=== PATIENT | female | born 1965 | race Caucasian/White ===

== ENCOUNTER 2017-09-16 18:32 | Emergency (ER) | payer SELFPAY ==
[2017-09-16] MEDS ORDERED: IPRATROPIUM/ALBUTEROL 3 ML DEYVIAL IH ONE (19:01)
--- NOTE | 2017-09-16 19:02 | EDPHY ---
H & P Stated Complaint: URI sxs since 09/05;saw MD started on antibx/steroids;wants cxr Time Seen by Provider: 09/16/17 18:54 HPI/ROS: Chief complaint: Cold symptoms History of present illness: This is a 52-year-old female who presents to the emergency department for cold symptoms. Patient states she has been sick since the 05 of September, approximately 12 days ago. Her cold symptoms have been persistent. She has a long history of developing mild cold symptoms that have progressed to pneumonia, ever since she was a child. She was seen by her doctor for this illness and treated with azithromycin and a Medrol Dosepak. However, she feels symptoms are worsening. She continues to have tactile fevers , chest congestion, cough and trouble breathing. She reports she has been sick like this multiple times. She states normally the treatment she has already received will control symptoms but this time it is not. She denies other associated signs or symptoms including no headache or neck pain, no rash. [place] and is returning home to [facility] in 2 days. Review of systems: A 10 point review of systems was obtained and other than described above was negative - Personal History LMP (Females 10-55): Post Menopausal Current Tetanus Diphtheria and Acellular Pertussis (TDAP): No - Medical/Surgical History Hx Asthma: Yes Other PMH: GERD. Recurring PNA following URIs since childhood - Social History Smoking Status: Current every day smoker - Physical Exam Exam: General Appearance: Alert, nontoxic. Eyes: Pupils equal and round no pallor or injection. ENT, Mouth: Mucous membranes moist. Respiratory: Patient is speaking in full sentences. There is no accessory muscle use. However, there is diffuse rhonchi and wheezing. Cardiovascular: Regular rate and rhythm. Gastrointestinal: Abdomen is soft and non tender, no masses, bowel sounds normal. Neurological: Alert and oriented x4. Strength and sensation intact and symmetrical. There is no meningismus. Skin: Warm and dry, no rashes. Musculoskeletal: Neck is supple non tender. Patient is ambulating without difficulty. Psychiatric: Patient is oriented X 3, there is no agitation. Constitutional: Initial Vital Signs Temperature (C) 36.9 C 09/16/17 18:39 Heart Rate 96 09/16/17 18:39 Respiratory Rate 18 09/16/17 18:39 Blood Pressure 117/82 H 09/16/17 18:39 O2 Sat (%) 97 09/16/17 18:39 O2 Delivery Mode Room Air Allergies/Adverse Reactions: Penicillins Allergy (Intermediate, Verified 09/16/17 18:45) perfumes Allergy (Severe, Uncoded 09/16/17 18:45) severe resp distress Home Medications: Medication Instructions Recorded Azithromycin [Zithromax] 250 mg PO DAILY 09/16/17 Benzonatate [Tessalon Pearles (RX)] 200 mg PO TID #30 cap 09/16/17 EPINEPHrine [Epipen 0.3 MG] 0.3 mg IM ONCE 09/16/17 Hrt 09/16/17 Omeprazole 40 mg PO 09/16/17 levOFLOXACIN [levAQUIN (*)] 750 mg PO DAILY 6 Days tab 09/16/17 methylPREDNISolone [Medrol 4mg (*)] 4 mg PO 09/16/17 Medical Decision Making - Diagnostics Imaging Results: Imaging Impressions Chest X-Ray 09/16/17 19:01 Impression: 1. Prominence of perihilar interstitial markings and peribronchial cuffing. Findings are nonspecific but can be seen with bronchitis, reactive airway disease, or viral process. 2. Mild patchy resolving infiltrate/pneumonia suspected in the right middle lobe. Imaging: Discussed imaging studies w/ scallop dredger Radiologist, I viewed and interpreted images myself ED Course/Re-evaluation: Patient is discussed with my secondary supervising physician Dr. Spike Gordon. Patient presents to the emergency department for cold symptoms. She has been sick for the last 12 days. She has been treated with azithromycin and what appears to be a Medrol Dosepak but symptoms persist. Physical exam reveals diffuse rhonchi and wheezing. She is given a duo nebulizer for the treatment of suspected reactive airway disease likely secondary to the infectious process. She has not had a chest x-ray as of yet during this illness. Given that she appears to be failing 1st line treatment of azithromycin and a Medrol Dosepak a chest x-ray is pursued which is concerning for a right middle lobe pneumonia. I have discussed inpatient management versus outpatient management with the patient. She would like to attempt to treat her illness at home if possible. Vital signs are stable. She will be discharged home on an albuterol inhaler with spacer for the control of suspected airway disease from the infection. She appears to have failed first-line antibiotic therapy with azithromycin, I will switch her to Levaquin for broad-spectrum coverage. Home care is discussed including rest and hydration. I have had a lengthy discussion with her that if her symptoms worsen or new symptoms develop she should return to the emergency room for recheck immediately. The patient voiced understanding and agreement with plan. Differential Diagnosis: Included but not limited to bronchitis, pneumonia, empyema, viral syndrome - Data Points Medications Given: Discontinued Medications Albuterol Sulfate (Proventil Inh Prepack) 1 mdi TAKEHOME EDNOW ONE Stop: 09/16/17 19:42 Last Admin: 09/16/17 19:59 Dose: 1 mdi Albuterol/Ipratropium (Duoneb) 3 ml IH EDNOW ONE Stop: 09/16/17 19:02 Last Admin: 09/16/17 19:08 Dose: 3 ml Levofloxacin (Levaquin) 750 mg PO EDNOW ONE PRN Reason: Protocol Stop: 09/16/17 19:42 Last Admin: 09/16/17 20:00 Dose: 750 mg Departure - Departure Disposition: Home, Routine, Self-Care Clinical Impression: Pneumonia Qualifiers: Pneumonia type: due to unspecified organism Laterality: right Lung location: middle lobe of lung Qualified Code(s): J18.1 - Lobar pneumonia, unspecified organism Reactive airway disease Qualifiers: Asthma severity: mild Asthma persistence: intermittent Asthma complication type : with acute exacerbation Qualified Code(s): J45.21 - Mild intermittent asthma with (acute) exacerbation Condition: Good Instructions: Albuterol (By breathing), Levofloxacin (By mouth), Bacterial Pneumonia (ED) Additional Instructions: Please follow-up with your regular doctor next week for recheck Stop taking the antibiotics you were prescribed and start the ones we prescribed Use the inhaler as instructed taking 2 puffs every 4 hr while awake I also recommend you use the [id number] medication guaifenesin to help loosen secretions in the lungs Drink plenty of fluids to stay hydrated and get plenty of rest If at any time your symptoms worsen or new symptoms develop return to the emergency room for recheck Referrals: NONE *PRIMARY CARE P,. [Primary Care Provider] - As per Instructions Barb Velazquez MD [Medical Doctor] - As per Instructions Prescriptions: Benzonatate [Tessalon Pearles (RX)] 200 mg PO TID #30 cap levOFLOXACIN [levAQUIN (*)] 750 mg PO DAILY 6 Days tab
[2017-09-16] MEDS ORDERED: ALBUTEROL INH PREPACK MDI TAKEHOME ONE (19:41)
[2017-09-16 20:02] VITALS: BP 125/90
== END 2017-09-16 20:25 | disposition home or self-care (01) ==
DX: J18.1 Lobar pneumonia, unspecified organism (principal); J45.21 Mild intermittent asthma with (acute) exacerbation; J45.909 Unspecified asthma, uncomplicated; F17.200 Nicotine dependence, unspecified, uncomplicated